=== PATIENT | male | born 1965 | race Two or more races ===

== ENCOUNTER 2021-12-08 10:50 | Emergency (ER) | payer OTHER ==
[~2021-12-08] VITALS: Ht 182.9 cm; Wt 122.9 kg
== END 2021-12-08 14:28 | disposition home or self-care (01) ==
LOC: ER 10:50
DX: U07.1 COVID-19 (principal)

== ENCOUNTER 2023-02-07 09:44 | Emergency (ER) | payer OTHER ==
[~2023-02-07] VITALS: Ht 182.9 cm; Wt 123.4 kg
[2023-02-07] MEDS ORDERED: FLONASE ALLERG9.9 ML NASAL (13:22)
[2023-02-07] MEDS ORDERED: CLARITIN10 M1 PO (13:22)
[2023-02-07] MEDS ORDERED: ZITHROMAX TRI-500 MG PO (13:22)
== END 2023-02-07 13:30 | disposition home or self-care (01) ==
LOC: ER 09:44
DX: J06.9 Acute upper respiratory infection, unspecified (principal); Z20.822 Contact with and (suspected) exposure to COVID-19

== ENCOUNTER → 2024-11-06 | Emergency (ER) | payer OTHER ==
[~2024-11-06] VITALS: Ht 177.8 cm; Wt 119.7 kg
[~2024-11-06] MED LIST: CLARITIN10 M1 PO; FLONASE ALLERG9.9 ML NASAL; KETOROLAC TROMETHAMINE 30 MG VIAL IM STA; ZITHROMAX TRI-500 MG PO
== END | disposition home or self-care (01) ==
LOC: ER 19:00
DX: R05.9 Cough, unspecified (principal); R53.81 Other malaise; Z20.822 Contact with and (suspected) exposure to COVID-19